=== PATIENT | male | born 1985 | race Caucasian/White ===

== ENCOUNTER 2021-06-19 12:00 | Emergency (ER) | payer MEDICAID, OTHER ==
[2021-06-19] MEDS ORDERED: Ondansetron 4 MG/2 ML SDV IVPUSH ONE (12:50)
[2021-06-19] MEDS ORDERED: Sodium Chloride 0.9% 1,000 ML IV ONE ×2 (12:50→13:44)
[2021-06-19] MEDS ORDERED: Sodium Chloride 0.9% 2.5 ML Syringe FLUSH PRN (12:50)
[2021-06-19] MEDS ORDERED: Sodium Chloride 0.9% 10 ML Syringe FLUSH PRN (12:50)
[2021-06-19] MEDS ORDERED: Morphine 4 MG/ML VIAL IVPUSH ONE (12:50)
[2021-06-19 13:37] LABS: BLOOD UREA NITROGEN,BUN 22 mg/dL (7.0-18.0); CARBON DIOXIDE,CO2 24.4 mmol/L (21.0-32.0); CHLORIDE,CL 91 mmol/L (98-107); ESTIMATED GFR > 60.0 ml/min; LIPASE 227 U/L (73-393); POTASSIUM,K 4.8 mmol/L (3.5-5.1); SODIUM,NA 126 mmol/L (136-148)
[2021-06-19 13:44] LABS: GLUCOSE RANDOM 663 mg/dL (74-106)
[2021-06-19] MEDS ORDERED: Insulin Regular, Human 100 Units/ML 10 ML Vial SUBCUT SCH (15:45)
[2021-06-19 17:13] LABS: BLOOD UREA NITROGEN,BUN 18 mg/dL (7.0-18.0); CARBON DIOXIDE,CO2 25.9 mmol/L (21.0-32.0); CHLORIDE,CL 98 mmol/L (98-107); ESTIMATED GFR > 60.0 ml/min; GLUCOSE RANDOM 388 mg/dL (74-106); POTASSIUM,K 4.3 mmol/L (3.5-5.1); SODIUM,NA 133 mmol/L (136-148)
== END 2021-06-19 18:05 | disposition home or self-care (01) ==
LOC: MW.ED 12:00
DX: K52.9 Noninfective gastroenteritis and colitis, unspecified (principal); E11.65 Type 2 diabetes mellitus with hyperglycemia; Z88.8 Allergy status to other drugs, medicaments and biological substances; Z79.84 Long term (current) use of oral hypoglycemic drugs; Z72.0 Tobacco use
CPT/HCPCS: 36415; 74177; 80048; 80053; 81003; 82009; 82803; 82947; 83690; 85025; 93005; 96374; 96375; 99285; J2270; J2405; J3490; J7030; 93010; 99284; J1815-GY

== ENCOUNTER 2021-11-10 13:30 | Inpatient (IN) | payer MEDICAID ==
[2021-11-10] MEDS ORDERED: Sodium Chloride 0.9% 2.5 ML Syringe FLUSH PRN (13:46)
[2021-11-10] MEDS ORDERED: Sodium Chloride 0.9% 1,000 ML IV ONE ×3 (13:46→16:20)
[2021-11-10] MEDS ORDERED: Sodium Chloride 0.9% 10 ML Syringe FLUSH PRN (13:46)
[2021-11-10 15:01] LABS: CARBON DIOXIDE,CO2 23.7 mmol/L (21.0-32.0); POTASSIUM,K 6.3 mmol/L (3.5-5.1)
[2021-11-10] MEDS ORDERED: Insulin Regular, Human 100 Units/ML 10 ML Vial SUBCUT ONE (15:15)
[2021-11-10] MEDS ORDERED: Glucagon,Human Recombinant 1 MG Vial IM PRN ×2 (15:15→22:20)
[2021-11-10] MEDS ORDERED: 50% Dextrose in Water 50 ML Syringe IVPUSH PRN ×2 (15:15→22:20)
[2021-11-10] MEDS ORDERED: Insulin Regular in 0.9 % NACL 100 ML IV SCH ×2 (15:30→17:39)
[2021-11-10] MEDS ORDERED: Nicotine 21 MG/24 Hr Patch TRDERM ONE (15:52)
[2021-11-10 16:11] LABS: HEMOGLOBIN A1C > 14.0 %
[2021-11-10] MEDS ORDERED: Sodium Chloride 0.9% 1,000 ML IV SCH (17:30)
[2021-11-10] MEDS ORDERED: Enoxaparin 40 MG/0.4 ML Syringe SUBCUT SCH (17:30)
[2021-11-10] MEDS ORDERED: Ondansetron 4 MG/2 ML SDV IVPUSH PRN (17:30)
[2021-11-10] MEDS ORDERED: Acetaminophen 325 MG Tab PO PRN (17:30)
[2021-11-10] MEDS ORDERED: Albuterol/Ipratropium 3.0-0.5 MG/3 ML Neb Soln NEB PRN (17:30)
[2021-11-10 18:59] LABS: CARBON DIOXIDE,CO2 19.9 mmol/L (21.0-32.0); POTASSIUM,K 3.9 mmol/L (3.5-5.1)
[2021-11-10] MEDS ORDERED: Potassium Chloride 20 MEQ in Premix Bag 1 BAG IV ONE ×2 (19:09→19:15)
[2021-11-10 21:57] LABS: CARBON DIOXIDE,CO2 23.3 mmol/L (21.0-32.0); POTASSIUM,K 3.9 mmol/L (3.5-5.1)
[2021-11-10] MEDS: Sodium Chloride 0.9% 1,000 ML IV SCH (22:49)
[2021-11-11 06:21] LABS: POTASSIUM,K 4.7 mmol/L (3.5-5.1)
[2021-11-11] MEDS: Sodium Chloride 0.9% 1,000 ML IV SCH (06:46)
[2021-11-11] MEDS ORDERED: Insulin Regular, Human 100 Units/ML 10 ML Vial SUBCUT SCH (07:30)
[2021-11-11] MEDS: Insulin Aspart 100 Units/ML 3 ML Pen SUBCUT SCH ×2 (07:53→12:11)
[2021-11-11] MEDS ORDERED: Insulin Glargine,Hum.Rec.Anlog 100 UNIT/ML 3 ML Pen SUBCUT STA (08:54)
[2021-11-11] MEDS ORDERED: Nicotine 21 MG/24 Hr Patch TRDERM SCH (09:00)
== END 2021-11-11 12:53 | disposition home or self-care (01) | DRG 639 ==
LOC: MW.ED 13:30 → MW.ICU 15:24 → MW.ED 17:22
PROVIDERS: ADMIT Internal Medicine; ATTEND Internal Medicine
DX: E11.65 Type 2 diabetes mellitus with hyperglycemia (principal); E87.5 Hyperkalemia; F20.9 Schizophrenia, unspecified; Z20.822 Contact with and (suspected) exposure to COVID-19; Z79.84 Long term (current) use of oral hypoglycemic drugs; E11.40 Type 2 diabetes mellitus with diabetic neuropathy, unspecified
CPT/HCPCS: 36415; 70450; 70450-26; 80053; 80305-QW; 81003; 82947; 83036; 83735; 83935; 84100; 84443; 85025; 86308; 93005; 96360; 96361; 99285-25; A9270-GY; J1650; J1815; J1815-GY; J3480; J3490; J7030; U0002